=== PATIENT | female | born 1965 | race Caucasian/White ===

== ENCOUNTER → 2017-02-10 | Outpatient (CLI) | payer OTHER | LOC: KOH-I 12:29 | DX: M54.5 Low back pain (principal); M47.816 Spondylosis without myelopathy or radiculopathy, lumbar region; Z88.1 Allergy status to other antibiotic agents; Z88.6 Allergy status to analgesic agent | CPT/HCPCS: 72110 ==

== ENCOUNTER 2017-09-01 11:32 | Emergency (ER) | payer BC ==
[2017-09-01 14:17] LABS: HEMOGLOBIN 14.8 gm/dl (12.3-15.3); RED BLOOD COUNT 4.92 M/UL (4.00-5.10); WHITE BLOOD COUNT 15.3 K/UL (4.5-11.0)
[2017-09-01 14:44] LABS: BUN/CREATININE RATIO 11 (0-10)
== END 2017-09-01 18:38 | disposition home or self-care (01) ==
LOC: ER1 11:32
PROVIDERS: Emergency Medicine
DX: N30.90 Cystitis, unspecified without hematuria (principal); D72.829 Elevated white blood cell count, unspecified; E78.5 Hyperlipidemia, unspecified; F17.200 Nicotine dependence, unspecified, uncomplicated; Z90.49 Acquired absence of other specified parts of digestive tract; Z88.1 Allergy status to other antibiotic agents; Z88.8 Allergy status to other drugs, medicaments and biological substances; Z79.82 Long term (current) use of aspirin; Z79.899 Other long term (current) drug therapy
CPT/HCPCS: 36415; 80053; 81001; 82550; 83690; 85025; 87040; 87077; 87086; 87186; 87210; 96374; 96375; 99284; J0696; J2270; J2405; J7050

== ENCOUNTER → 2020-12-14 | Outpatient (CLI) | payer OTHER ==
[~2020-12-14] MED LIST: ABILIFY 5 MG TAB5 MG PO; ADVAIR 250-501 EACH INH; ALBUTEROL2.5 MG/3 M INH; AMBIEN10 MG PO; ASPIR 8181 MG PO; BENTYL 20MG TAB20 MG PO; BUSPIRONE HCL5 MG PO; CELEBREX 200MG200 MG PO; CELEXA20 MG PO; CLARITIN10 MG PO; CLONAZEPAM1 MG PO; CYCLOBENZAPRINE10 MG PO; DOXYCYCLINE HY100 M2 PO; GABAPENTIN300 MG PO; GLUCOPHAGE500 MG PO; HYDROCHLOROTHIA25 MG PO; IBU600 MG PO; K-DUR TAB 20 M20 MEQ PO; KEFLEX500 MG PO; LEXAPRO20 MG PO; LIPITOR40 MG PO; LORTAB 7.5-3251 EACH PO; MEDROL DOSEPAK 24 MG PO; MOBIC15 MG PO; NEURONTIN300 MG PO; NICOTINE PATCH1 EAC2 TD; NITROSTAT0.4 MG SL; NOLVADEX 10 MG10 MG PO; OMEPRAZOLE40 MG PO; PERCOCET 5/325 T1 EA PO; PERCOCET 7.5-31 EACH PO; PRILOSEC OTC20 MG PO; PROVENTIL HFA6.7 GM INH; PROZAC 20 MG CA20 MG PO; REMERON15 MG PO; SEROQUEL100 MG PO; SYMBICORT 160-1 INHA INH; SYMBICORT 16010.2 GM INH; TOPROL XL50 MG PO; VALTREX1000 MG PO; VISTARIL25 MG PO; VITAMIN B-121000 MCG PO; VITAMIN C500 M4 PO; VITAMIN D PO; VITAMIN D31000 UNI1 PO; ZESTRIL5 MG PO; ZOCOR40 MG PO; ZOFRAN ODT 4 MG4 MG SL
== END ==
LOC: CT 07:26
DX: R10.13 Epigastric pain (principal); R19.7 Diarrhea, unspecified; K76.0 Fatty (change of) liver, not elsewhere classified
CPT/HCPCS: 36415; 82565; 84520; Q9967

== ENCOUNTER 2021-01-10 12:20 | Emergency (ER) | payer OTHER ==
[~2021-01-10 12:20] MED LIST changes: -ADVAIR 250-501 EACH INH; -AMBIEN10 MG PO; -BUSPIRONE HCL5 MG PO; -CELEBREX 200MG200 MG PO; -CYCLOBENZAPRINE10 MG PO; -DOXYCYCLINE HY100 M2 PO; -MEDROL DOSEPAK 24 MG PO; -NICOTINE PATCH1 EAC2 TD; -SYMBICORT 160-1 INHA INH; -VALTREX1000 MG PO; -VITAMIN B-121000 MCG PO; -ZESTRIL5 MG PO
[2021-01-10] MEDS ORDERED: MEDROL DOSEPAK 24 MG PO (14:54)
[2021-01-10] MEDS ORDERED: CYCLOBENZAPRINE10 MG PO (14:54)
== END 2021-01-10 15:05 | disposition home or self-care (01) ==
LOC: ER1 12:20
DX: M54.42 Lumbago with sciatica, left side (principal); J44.9 Chronic obstructive pulmonary disease, unspecified; F17.210 Nicotine dependence, cigarettes, uncomplicated; Z88.1 Allergy status to other antibiotic agents; Z90.710 Acquired absence of both cervix and uterus; Z71.6 Tobacco abuse counseling
CPT/HCPCS: 96372; 99283; J1100

== ENCOUNTER → 2021-01-22 | Outpatient (CLI) | payer OTHER ==
[~2021-01-22] MED LIST changes: +ADVAIR 250-501 EACH INH; +AMBIEN10 MG PO; +BUSPIRONE HCL5 MG PO; +CELEBREX 200MG200 MG PO; +CYCLOBENZAPRINE10 MG PO; +DOXYCYCLINE HY100 M2 PO; +MEDROL DOSEPAK 24 MG PO; +NICOTINE PATCH1 EAC2 TD; +SYMBICORT 160-1 INHA INH; +VALTREX1000 MG PO; +VITAMIN B-121000 MCG PO; +ZESTRIL5 MG PO
== END ==
LOC: KOH-I 01-13 10:30
DX: Z12.2 Encounter for screening for malignant neoplasm of respiratory organs (principal); F17.210 Nicotine dependence, cigarettes, uncomplicated
CPT/HCPCS: 71271

== ENCOUNTER 2021-01-24 12:10 | Inpatient (IN) | payer MEDICARE, OTHER ==
[~2021-01-24] VITALS: Ht 170.2 cm; Wt 110.7 kg
[~2021-01-24 12:10] MED LIST changes: -ADVAIR 250-501 EACH INH; -AMBIEN10 MG PO; -BUSPIRONE HCL5 MG PO; -CELEBREX 200MG200 MG PO; -DOXYCYCLINE HY100 M2 PO; -NICOTINE PATCH1 EAC2 TD; -SYMBICORT 160-1 INHA INH; -VALTREX1000 MG PO; -VITAMIN B-121000 MCG PO; -ZESTRIL5 MG PO
[2021-01-24 16:13] LABS: HEMOGLOBIN 14.9 gm/dl (12.3-15.3); RED BLOOD COUNT 4.72 M/UL (4.00-5.10); WHITE BLOOD COUNT 23.3 K/UL (4.5-11.0)
[2021-01-24 16:39] LABS: BUN/CREATININE RATIO 16 (0-10)
[2021-01-24] MEDS ORDERED: CELEBREX 200MG200 MG PO (20:11)
[2021-01-24] MEDS ORDERED: VALTREX1000 MG PO ×2 (20:13→20:21)
[2021-01-24] MEDS ORDERED: VITAMIN B-121000 MCG PO (20:14)
[2021-01-25 02:47] LABS: HEMOGLOBIN 14.2 gm/dl (12.3-15.3); RED BLOOD COUNT 4.55 M/UL (4.00-5.10); WHITE BLOOD COUNT 17.8 K/UL (4.5-11.0)
[2021-01-25 03:19] LABS: BUN/CREATININE RATIO 26 (0-10)
[2021-01-26 03:41] LABS: HEMOGLOBIN 14.4 gm/dl (12.3-15.3); RED BLOOD COUNT 4.58 M/UL (4.00-5.10); WHITE BLOOD COUNT 17.4 K/UL (4.5-11.0)
[2021-01-26 03:47] LABS: BUN/CREATININE RATIO 27 (0-10)
[2021-01-27 05:55] LABS: HEMOGLOBIN 14.7 gm/dl (12.3-15.3); RED BLOOD COUNT 4.66 M/UL (4.00-5.10); WHITE BLOOD COUNT 13.8 K/UL (4.5-11.0)
[2021-01-27 06:19] LABS: BUN/CREATININE RATIO 37 (0-10)
[2021-01-27] MEDS ORDERED: SYMBICORT 160-1 INHA INH (14:32)
[2021-01-27] MEDS ORDERED: PROVENTIL HFA6.7 GM INH (14:32)
[2021-01-27] MEDS ORDERED: NICOTINE PATCH1 EAC2 TD (14:32)
== END 2021-01-27 17:47 | disposition home or self-care (01) | DRG 192 ==
LOC: ER1 12:10 → CDU 17:18 → M/S 17:18
PROVIDERS: Emergency Medicine; Physician Assistant; ADMIT Internal Medicine
DX: J44.1 Chronic obstructive pulmonary disease with (acute) exacerbation (principal); D72.829 Elevated white blood cell count, unspecified; F17.210 Nicotine dependence, cigarettes, uncomplicated; Z20.822 Contact with and (suspected) exposure to COVID-19; I10 Essential (primary) hypertension; E78.5 Hyperlipidemia, unspecified; Z85.3 Personal history of malignant neoplasm of breast; K21.9 Gastro-esophageal reflux disease without esophagitis; Z90.11 Acquired absence of right breast and nipple; Z90.710 Acquired absence of both cervix and uterus; Z79.82 Long term (current) use of aspirin; Z79.899 Other long term (current) drug therapy; Z88.6 Allergy status to analgesic agent; Z88.8 Allergy status to other drugs, medicaments and biological substances; G47.00 Insomnia, unspecified; E87.6 Hypokalemia; R73.9 Hyperglycemia, unspecified; T38.0X5A Adverse effect of glucocorticoids and synthetic analogues, initial encounter
CPT/HCPCS: 0240U; 36415; 36600; 71045; 80048; 80053; 81001; 82550; 82553; 82803; 83036; 83874; 83880; 84484; 85025; 85379; 86140; 87040; 93005; 94640; 94760; 96365; 96366; 96372; 96375; 96376; 99285; G0378; J0696; J1650; J2920; J2930; J7070

== ENCOUNTER → 2021-02-16 | Outpatient (CLI) | payer MEDICARE, OTHER ==
[~2021-02-16] MED LIST changes: +ADVAIR 250-501 EACH INH; +AMBIEN10 MG PO; +BUSPIRONE HCL5 MG PO; +CELEBREX 200MG200 MG PO; +DOXYCYCLINE HY100 M2 PO; +NICOTINE PATCH1 EAC2 TD; +SYMBICORT 160-1 INHA INH; +VALTREX1000 MG PO; +VITAMIN B-121000 MCG PO; +ZESTRIL5 MG PO
== END ==
LOC: HEART 5 11:10
DX: J44.9 Chronic obstructive pulmonary disease, unspecified (principal); R94.2 Abnormal results of pulmonary function studies
CPT/HCPCS: 94060; 94729

== ENCOUNTER 2021-02-18 12:34 | Observation (INO) | payer MEDICARE, OTHER ==
[~2021-02-18] VITALS: Ht 167.6 cm; Wt 110.0 kg
[~2021-02-18 12:34] MED LIST changes: -ADVAIR 250-501 EACH INH; -AMBIEN10 MG PO; -BUSPIRONE HCL5 MG PO; -DOXYCYCLINE HY100 M2 PO; -ZESTRIL5 MG PO
[2021-02-18 14:52] LABS: HEMOGLOBIN 14.7 gm/dl (12.3-15.3); RED BLOOD COUNT 4.71 M/UL (4.00-5.10); WHITE BLOOD COUNT 9.8 K/UL (4.5-11.0)
[2021-02-18 15:44] LABS: BUN/CREATININE RATIO 8 (0-10)
[2021-02-18] MEDS ORDERED: NEURONTIN300 MG PO (18:24)
[2021-02-18] MEDS ORDERED: ZESTRIL5 MG PO (18:25)
[2021-02-18] MEDS ORDERED: AMBIEN10 MG PO (18:27)
[2021-02-18] MEDS ORDERED: ADVAIR 250-501 EACH INH (18:29)
[2021-02-19 01:21] LABS: WHITE BLOOD COUNT 9.2 K/UL (4.5-11.0)
[2021-02-19 01:23] LABS: RED BLOOD COUNT 4.17 M/UL (4.00-5.10)
[2021-02-19 02:46] LABS: BUN/CREATININE RATIO 11 (0-10)
[2021-02-19] MEDS ORDERED: K-DUR TAB 20 M20 MEQ PO (16:46)
== END 2021-02-19 19:38 | disposition home or self-care (01) ==
LOC: ER1 12:34 → CDU 16:50 → MED SURG 4 19:12
PROVIDERS: Physician Assistant Medical; Preventive Medicine Occupational Medicine; ADMIT Internal Medicine
DX: R07.2 Precordial pain (principal); E87.6 Hypokalemia; K52.9 Noninfective gastroenteritis and colitis, unspecified; E83.42 Hypomagnesemia; J44.9 Chronic obstructive pulmonary disease, unspecified; I10 Essential (primary) hypertension; E78.5 Hyperlipidemia, unspecified; K21.9 Gastro-esophageal reflux disease without esophagitis; E55.9 Vitamin D deficiency, unspecified; G47.00 Insomnia, unspecified; E66.9 Obesity, unspecified; Z68.37 Body mass index [BMI] 37.0-37.9, adult; Z90.49 Acquired absence of other specified parts of digestive tract; Z90.710 Acquired absence of both cervix and uterus; Z96.698 Presence of other orthopedic joint implants; Z87.891 Personal history of nicotine dependence; Z79.899 Other long term (current) drug therapy; Z88.1 Allergy status to other antibiotic agents; Z88.6 Allergy status to analgesic agent; Z85.3 Personal history of malignant neoplasm of breast
CPT/HCPCS: 36415; 71045; 78452; 80048; 80053; 81001; 82550; 82553; 83690; 83735; 83874; 84132; 84484; 84703; 85025; 85027; 85379; 86140; 87045; 87046; 87449; 93005; 93017; 94664; 96374; 96375; 99285; A9502; C9113; G0378; J2785; J3475; J7030

== ENCOUNTER 2021-02-28 17:25 | Emergency (ER) | payer MEDICARE, OTHER ==
[~2021-02-28 17:25] MED LIST changes: +ADVAIR 250-501 EACH INH; +AMBIEN10 MG PO; +ZESTRIL5 MG PO
[2021-02-28 18:56] LABS: HEMOGLOBIN 16.1 gm/dl (12.3-15.3); RED BLOOD COUNT 5.13 M/UL (4.00-5.10); WHITE BLOOD COUNT 17.6 K/UL (4.5-11.0)
[2021-02-28 19:07] LABS: BUN/CREATININE RATIO 11 (0-10)
== END 2021-03-01 01:04 | disposition home or self-care (01) ==
LOC: ER1 17:25
PROVIDERS: Physician Assistant
DX: M62.830 Muscle spasm of back (principal); M62.838 Other muscle spasm; E78.5 Hyperlipidemia, unspecified; D72.829 Elevated white blood cell count, unspecified; R00.0 Tachycardia, unspecified; J44.9 Chronic obstructive pulmonary disease, unspecified; I10 Essential (primary) hypertension; Z85.3 Personal history of malignant neoplasm of breast; Z90.49 Acquired absence of other specified parts of digestive tract; Z90.710 Acquired absence of both cervix and uterus; Z88.1 Allergy status to other antibiotic agents; Z20.822 Contact with and (suspected) exposure to COVID-19; Z88.8 Allergy status to other drugs, medicaments and biological substances
CPT/HCPCS: 0240U; 71046; 80053; 80307; 81001; 83605; 83735; 84439; 84443; 85025; 85379; 85610; 85730; 86140; 93005; 99284

== ENCOUNTER → 2021-03-31 | Outpatient (CLI) | payer MEDICARE ==
[~2021-03-31] MED LIST changes: +BUSPIRONE HCL5 MG PO; +DOXYCYCLINE HY100 M2 PO
== END ==
LOC: KOH-I 16:02
DX: M79.671 Pain in right foot (principal); M19.071 Primary osteoarthritis, right ankle and foot; Z98.890 Other specified postprocedural states
CPT/HCPCS: 73630

== ENCOUNTER → 2021-04-22 | Outpatient (CLI) | payer MEDICARE | LOC: KOH-I 15:29 | DX: S92.331A Displaced fracture of third metatarsal bone, right foot, initial encounter for closed fracture (principal); S92.341A Displaced fracture of fourth metatarsal bone, right foot, initial encounter for closed fracture | CPT/HCPCS: 73630 ==

== ENCOUNTER 2021-05-26 16:33 | Emergency (ER) | payer MEDICARE ==
[~2021-05-26 16:33] MED LIST changes: -BUSPIRONE HCL5 MG PO; -DOXYCYCLINE HY100 M2 PO
[2021-05-26 17:01] LABS: HEMOGLOBIN 16.2 gm/dl (12.3-15.3); RED BLOOD COUNT 4.99 M/UL (4.00-5.10); WHITE BLOOD COUNT 17.7 K/UL (4.5-11.0)
[2021-05-26 17:29] LABS: BUN/CREATININE RATIO 17 (0-10)
[2021-05-26] MEDS ORDERED: DOXYCYCLINE HY100 M2 PO (20:53)
[2021-05-26] MEDS ORDERED: BUSPIRONE HCL5 MG PO (20:54)
== END 2021-05-26 20:59 | disposition home or self-care (01) ==
LOC: ER1 16:33
PROVIDERS: Physician Assistant
DX: J44.1 Chronic obstructive pulmonary disease with (acute) exacerbation (principal); J40 Bronchitis, not specified as acute or chronic; R07.89 Other chest pain; R00.2 Palpitations; E11.9 Type 2 diabetes mellitus without complications; I10 Essential (primary) hypertension; Z88.1 Allergy status to other antibiotic agents; Z88.8 Allergy status to other drugs, medicaments and biological substances; Z90.49 Acquired absence of other specified parts of digestive tract; Z90.710 Acquired absence of both cervix and uterus; Z85.3 Personal history of malignant neoplasm of breast
CPT/HCPCS: 71045; 80053; 81001; 82550; 82553; 83874; 84439; 84443; 84484; 85025; 85379; 93005; 94664; 94762; 96374; 96375; 99285; J2060; J2405; J2930